=== PATIENT | female | born 1945 | race Caucasian/White ===

== ENCOUNTER → 2018-05-21 | Outpatient (CLI) | payer OTHER | LOC: FIMAGING 11:28 | PROVIDERS: ATTEND Family Medicine | DX: Z13.820 Encounter for screening for osteoporosis (principal); M81.0 Age-related osteoporosis without current pathological fracture; E83.52 Hypercalcemia; E21.0 Primary hyperparathyroidism; Z79.899 Other long term (current) drug therapy; I10 Essential (primary) hypertension; Z78.0 Asymptomatic menopausal state ==